=== PATIENT | male | born 1980 | race Native Hawaiian/Other Pacific Islander ===

== ENCOUNTER 2019-12-14 19:57 | Emergency (ER) | payer BC, SELFPAY ==
[2019-12-14 20:06] VITALS: BP 124/76; PULSE 90; RESP 16; TEMP 36.9; O2SAT 97; BMI 32.5
--- NOTE | 2019-12-14 20:30 | XR_ITS ---
WS: [id number] LEFT HAND: 3 VIEW(S) TECHNIQUE: PA, oblique and lateral. HISTORY: iNJURY COMPARISON: None available. No acute fracture or dislocation. No soft tissue or bone abnormality. XR/XR hand LT min 3V* [id number] IMPRESSION: Normal LEFT hand.
--- NOTE | 2019-12-14 21:17 | W.ED.UPPEXIN ---
HPI - Extremity Injury (Upper) General: Chief Complaint: Extremity Injury, Upper Stated Complaint: finger/hand lac Time Seen by Provider: 12/14/19 20:32 Source: patient Mode of arrival: ambulatory Limitations: no limitations History of Present Illness: HPI narrative: Patient is a 39-year-old male who presents to ED today with complaints of a laceration to his left middle finger that he sustained after cutting it on a combine. Patient states his tetanus is up-to-date. complaint: injury to: left and finger Onset (ago): hour(s) Other Extremity Injury: Left: fingers (middle) Other injuries: none Place: home Severity: mild Relieving factors: none Exacerbating factors: none Associated symptoms: Reports no associated symptoms Review of Systems Skin/Breast: Reports: other (laceration ) Neuro: Denies: numbness in extremities or sensory changes PFSH ED PFSH: Social History Smoking and tobacco status: never smoked Physical Exam Const: COMMON NORMALS: no acute distress, average body habitus, patient oriented x3, no limitations, healthy appearing, alert and well nourished Extremity: OTHER: 1.5 cm laceration to volar L middle finger overlying middle phalanx Neuro: COMMON NORMALS: patient oriented x3, moves all extremities, no focal motor deficits and no sensory deficits noted SENSORIUM/ORIENTATION: Yes alert OTHER: maintains full ROM of digit against resistance Skin: OTHER: see extremity assessment Procedures Laceration Laceration 1: Site: hand (L middle finger) Side (If applicable): left Size (cm): 1.5 Description: linear and flap Depth: simple, single layer Local Anesthetic: lidocaine 1% (digital block) Amount of anesthesia used (mL): 2.0 Pre-repair: wound explored and irrigated extensively Skin layer closed with: nylon Size (cm): 4-0 Number of sutures: 5 Course Vital Signs: Vital signs: Vital Signs Temperature 98.4 F 12/14/19 20:06 Pulse Rate 78 12/14/19 21:56 Respiratory Rate 17 12/14/19 21:56 Blood Pressure 133/84 12/14/19 21:56 Pulse Oximetry 98 12/14/19 21:56 MDM - Extremity Injury (Upper) Imaging Data^: L hand XR: My impression: no fxs, dislocations, or fbs noted; small soft tissue injury to volar middle phalanx of middle finger Discharge Plan Discharge Patient Disposition: Home, Self-Care Clinical Impression: Laceration of left middle finger Qualifiers: Encounter type: initial encounter Damage to nail status: without damage Foreign body presence: without foreign body Qualified Code(s): S61.213A - Laceration without foreign body of left middle finger without damage to nail, initial encounter Condition: Stable Prescriptions: No Action No Known Home Medications RF: 0 Discharge Orders: Discharge Order (Routine); Ordered 12/14/19 Ordered By: Kareen Toney Patient Instructions: Suture Care (ED), Laceration (ED), Finger Laceration (ED) Discharge Date/Time: 12/14/19 22:02 Coding Level of Care Code ED Child Nutrition Manager for Jennie Vasquez
[2019-12-14 21:56] VITALS: BP 133/84; PULSE 78; RESP 17; O2SAT 98
== END 2019-12-14 22:02 | disposition home or self-care (01) ==
PROVIDERS: Emergency Provider Physician Assistant
DX: S61.213A Laceration without foreign body of left middle finger without damage to nail, initial encounter (principal); W30.0XXA Contact with combine harvester, initial encounter
CPT/HCPCS: 12001; 12345; 73130; 99281; 99283

== ENCOUNTER 2019-12-15 23:13 | Emergency (ER) | payer BC, SELFPAY ==
[2019-12-15 23:15] VITALS: BP 156/104; PULSE 102; RESP 18; TEMP 36.9; O2SAT 98; BMI 32.8
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
[2019-12-15 23:48] VITALS: BP 156/104; PULSE 101; RESP 20; O2SAT 100
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
[2019-12-16] MEDS: iohexol 300 mg/mL 100 mL Btl IV (00:35)
[2019-12-16 01:19] VITALS: RESP 18; O2SAT 96
[2019-12-16] MEDS: morphine 4 mg/mL SDV 1 mL IVP (01:19)
[2019-12-16] MEDS: ondansetron 2 mg/ML SDV 2 mL 4 MG IVP (01:19)
[2019-12-16 01:35] VITALS: PULSE 105; RESP 18; O2SAT 95
[2019-12-16 01:36] VITALS: BP 146/85; PULSE 107; RESP 23; O2SAT 94
[2019-12-16] MEDS: HYDROcodone-acetaminophen 5-325 mg Tablet 2 TAB PO (02:18)
[2019-12-16 02:33] VITALS: BP 112/56; PULSE 101; RESP 20; O2SAT 98
== END 2019-12-16 02:17 | disposition home or self-care (01) ==
PROVIDERS: Emergency Provider Physician Assistant
DX: S22.42XA Multiple fractures of ribs, left side, initial encounter for closed fracture (principal); S32.028A Other fracture of second lumbar vertebra, initial encounter for closed fracture; S32.038A Other fracture of third lumbar vertebra, initial encounter for closed fracture; V69.9XXA Occupant (driver) (passenger) of heavy transport vehicle injured in unspecified traffic accident, initial encounter
CPT/HCPCS: 12345; 70450; 71260; 72125; 72128; 72131; 74177; 96374; 96375; 99283; J2270; J2405; Q9967

== ENCOUNTER 2020-01-04 08:46 | Outpatient (CLI) | payer BC, SELFPAY ==
--- NOTE | 2020-01-04 08:54 | MR_ITS ---
WS: [id number] MRI LUMBAR SPINE NONCONTRAST TECHNIQUE: Sagittal T1, T2 and STIR imaging. Axial T1 and T2 imaging. CLINICAL INFORMATION: CLOSED FX OF TRANSVERSE PROCESS OF LUMBAR VERTEBRA COMPARISON: CT December 16, 2019 FINDINGS: Stable nondisplaced fractures left transverse processes of L2 and L3. No acute compression fractures. No high-grade central canal stenosis. L1-L2: Normal. L2-L3: No significant disc bulging. Spinal canal and foramen are patent. L3-L4: No significant disc bulging. Mild facet arthropathy. Spinal canal and foramen are patent. L4-L5: Mild annular bulging. Slight effacement of ventral thecal sac. Mild facet arthropathy. Spinal canal and foramen are patent. L5-S1: Shallow left pericentral protrusion with slight contact of the traversing left greater than ri ght S1 nerve roots. Mild left and no significant right foraminal narrowing. Mild to moderate facet ar thropathy. Visualized pelvic bony structures: Normal. Paravertebral soft tissues: Normal. MR/MR lumbar spine wo con* [id number] IMPRESSION: 1. Mild lumbar curve. No acute compression. No high-grade central canal stenos is. 2. Shallow left pericentral protrusion L5-S1 impinges the traversing left S1 n erve root. Correlation left S1 nerve root symptoms. 3. Mild left L5-S1 foraminal narrowing. 4. Mild/moderate facet arthropathy L3-L5 worse at left L5-S1.
== END 2020-01-04 08:47 | disposition home or self-care (01) ==
LOC: RADWPI 08:48
PROVIDERS: Family Provider Nurse Practitioner Family; PCP Nurse Practitioner Family; Visit Provider Nurse Practitioner Family
DX: S32.009A Unspecified fracture of unspecified lumbar vertebra, initial encounter for closed fracture (principal); M47.817 Spondylosis without myelopathy or radiculopathy, lumbosacral region; M51.27 Other intervertebral disc displacement, lumbosacral region; X58.XXXA Exposure to other specified factors, initial encounter
CPT/HCPCS: 72148

== ENCOUNTER 2021-05-11 09:54 | Inpatient (IN) | payer BC, SELFPAY ==
[2021-05-11] VITALS (9 sets, daily range): BP systolic 112–138; BP diastolic 70–90; PULSE 78–98; RESP 16–22; TEMP 37–37.8; O2SAT 88–92
--- NOTE | 2021-05-11 10:59 | W.ED.COVID ---
HPI - COVID General: Chief Complaint: COVID symptoms Stated Complaint: COVID+ Time Seen by Provider: 05/11/21 10:49 Triage information: Has fever, cough or shortness of breath. History of Present Illness: HPI Narrative: 40-year-old male presents emergency room with complaint of shortness of breath. O2 sats on room air 88%. Patient first began having symptoms on May 06, 5 days ago, tested +2 days ago on May 09. He is progressively having increasing shortness of breath. Reports having been prescribed Zithromax prednisone and albuterol. Patient is not diabetic he has no known heart disease no history of any chronic respiratory illness. He has not previously been vaccinated nor did he receive monoclonal antibodies. MD complaint: known COVID positive Prior covid testing: yes, results known Prior testing date: 05/09/21 COVID 19 common symptoms: positive fever(s), chills, cough, non-productive cough, dyspnea, fatigue, body aches, loss of sense of smell and/or taste and nasal congestion; negative nausea, vomiting or diarrhea COVID 19 other sytmptoms: positive requiring oxygen; negative chest pain Onset (ago): day(s) (5) Severity: moderate Pertinent comorbid conditions: obesity Treatment prior to arrival: antibiotics, steroids and breathing treatments (Albuterol inhaler) COVID Results: No Data to Display Review of Systems Const: Reports: fever(s), chills, body aches and fatigue ENMT: Reports: nasal congestion Card: Denies: chest pain, edema, dyspnea on exertion or orthopnea Resp: Reports: dyspnea and non-productive cough GI: Denies: abdominal pain, nausea, vomiting, hematemesis, coffee ground emesis, diarrhea, constipation, bloating, hematochezia or melena : Denies: flank pain, dysuria, urinary frequency or urinary urgency Skin/Breast: Denies: rash or pruritus PFSH ED PFSH: Family History Other Dementia Social History Smoking and tobacco status: never smoked Alcohol intake: never Physical Exam Const: GENERAL APPEARANCE: cooperative, ill appearing and other (mild acute respiratory distress.) ORIENTATION/CONSCIOUSNESS: Yes awake, Yes oriented to person, Yes oriented to place and Yes oriented to time HENMT: COMMON NORMALS: normocephalic, atraumatic and hearing grossly normal bilaterally HEAD & SCALP: normocephalic and atraumatic Neck/C-Spine: COMMON NORMALS: no JVD Resp: EFFORT & INSPECTION: Yes tachypneic and Yes respiratory distress AUSCULTATION: crackles and wheezes Cardio: COMMON NORMALS: no JVD, regular rate, regular rhythm and No murmurs present (Cardio) RATE: regular rate RHYTHM: regular rhythm GI: COMMON NORMALS: Soft to palpation and No hepatosplenomegaly present AUSCULTATION: Yes normoactive bowel sounds PALPATION: Yes Soft to palpation, No Tenderness to palpation present (GI), No Guarding due to palpation present (GI) and Yes No hepatosplenomegaly present Extremity: COMMON NORMALS: normal to inspection, capillary refill normal, no clubbing, cyanosis or edema, no calf tenderness and no pedal edema Neuro: SENSORIUM/ORIENTATION: Yes oriented to person, Yes oriented to place and Yes oriented to time Skin: COMMON NORMALS: no rashes or lesions noted GENERAL SKIN EXAM: no rashes or lesions noted Course Vital Signs: Vital signs: Vital Signs Temperature 98.4 F 05/18/21 04:00 Pulse Rate 77 05/18/21 04:00 Respiratory Rate 19 H 05/18/21 04:00 Blood Pressure 124/70 05/18/21 04:00 Pulse Oximetry 95 05/18/21 04:00 MDM - COVID MDM Narrative: Medical decision making narrative: Patient has significant risk factors and is rapidly deteriorating in the reported timeframe that he is begun to be symptomatic. Respiratory distress relieved by supplemental oxygen initially. recommend hospitalization with IV steroids remdesivir. Discussed with hospitalist orders have been written. Lab Data: Labs: Lab Results 05/11/21 05/11/21 05/11/21 10:56 10:56 10:56 WBC 8.2 10^3/uL 10^3/ uL (4.0-10.0) RBC 5.03 10^6/uL 10^6 /uL (4.1-5.3) Hgb 14.0 g/dL g/dL (11.7-16.6) Hct 43.2 % % (42.0-52.0) MCV 85.9 fl fl (80-94) MCH 27.8 pg L pg (28.0-34.0) MCHC 32.4 g/dL g/dL (30.0-36.0) RDW 13.8 % % (12.1-15.1) Plt Count 204 10^3/cmm 10^3 /cmm (130-400) MPV 10.0 fL fL (7.4-10.4) Neut % (Auto) 90.6 % % Lymph % (Auto) 5.7 % % [place] % (Auto) 3.0 % % Eos % (Auto) 0.0 % % Baso % (Auto) 0.1 % % Neut # (Auto) 7.46 10^3/uL 10^3 /uL (1.8-7.7) Lymph # (Auto) 0.5 10^3/uL L 10^ 3/uL (0.8-4.8) [place] # (Auto) 0.3 10^3/uL 10^3/ uL (0.2-0.9) Eos # (Auto) 0.0 10^3/uL 10^3/ uL (0.0-0.8) Baso # (Auto) 0.0 10^3/uL 10^3/ uL (0.0-0.1) Nucleated RBC % (a uto) 0 % % Nucleated RBCs # 0.0 /100WBC /100W BC D-Dimer 0.87 ug/mIFEU H u g/mIFEU (0-0.59) Specimen Type Sample Site ABG pH ABG pCO2 ABG pO2 ABG HCO3 ABG Base Excess Roderick Test Hematocrit O2 Delivery Device O2 Liters/Min FiO2 Aircraft Communicator ID Sodium 136 mmol/L mmol/L (136-145) Potassium 3.9 mmol/L mmol/L (3.5-5.1) Chloride 98 mmol/L mmol/L (98-107) Carbon Dioxide 22 mmol/L mmol/L (22-29) Anion Gap 19.9 H (5-19) BUN 16 mg/dL mg/dL (6-20) Creatinine 0.8 mg/dL mg/dL (0.7-1.2) GFR Calculation 108.2 mL/min mL/m in (90-130) Glucose 107 mg/dL mg/dL (65-115) Calculated Osmolal ity 284 mOsm/kg L mOs m/kg (285-295) Lactic Acid Calcium 8.1 mg/dL L mg/dL (8.5-10.5) Total Bilirubin 0.4 mg/dL mg/dL (0.15-1.2) AST 45 U/L H U/L (0-40) ALT 36 U/L U/L (0-41) Alkaline Phosphata se 70 IU/L IU/L (40-130) C-Reactive Protein 91.0 mg/L H mg/L (0.0-4.9) Total Protein 7.6 g/dL g/dL (6.6-8.7) Albumin 3.8 g/dL g/dL (3.5-5.2) Globulin 3.8 g/dL g/dL (1.3-4.6) Procalcitonin 05/11/21 05/11/21 05/11/21 10:56 10:56 11:22 WBC RBC Hgb Hct MCV MCH MCHC RDW Plt Count MPV Neut % (Auto) Lymph % (Auto) [place] % (Auto) Eos % (Auto) Baso % (Auto) Neut # (Auto) Lymph # (Auto) [place] # (Auto) Eos # (Auto) Baso # (Auto) Nucleated RBC % (a uto) Nucleated RBCs # D-Dimer Specimen Type Arterial Sample Site Radial, right ABG pH 7.45 (7.35-7.45) ABG pCO2 38.5 mmHg mmHg (35-45) ABG pO2 70.5 mmHg L mmHg (80.0-100.0) ABG HCO3 26.9 mmol/L H mmo l/L (22-26) ABG Base Excess 2.9 mmol/L H mmol /L (-2.0-2.0) Roderick Test Pos Hematocrit 42.7 % % (42-52) O2 Delivery Device Nc O2 Liters/Min 4.0 % % FiO2 36.0 % % Aircraft Communicator ID [place] Sodium Potassium Chloride Carbon Dioxide Anion Gap BUN Creatinine GFR Calculation Glucose Calculated Osmolal ity Lactic Acid 1.3 mmol/L mmol/L (0.5-2.2) Calcium Total Bilirubin AST ALT Alkaline Phosphata se C-Reactive Protein Total Protein Albumin Globulin Procalcitonin 0.19 ng/mL ng/mL (0-0.5) COVID Results: No Data to Display Discharge Plan Discharge Patient Disposition: Admitted As Inpatient Admit Provider: Baron Gould Clinical Impression: Pneumonia due to COVID-19 virus, Acute respiratory failure with hypoxia Condition: Stable Coding Level of Care Code ED Clinic Specialist for Chg Fwd Exam Comprehensive
[2021-05-11] MEDS: dexamethasone 10 mg/mL INJ 6 MG IVP (11:04)
--- NOTE | 2021-05-11 11:11 | XR_ITS ---
WS: [id number] Exam: XR chest 1V portable [id number] Date/Time of Exam: 05/11/2021 11:15 AM Reason For Exam: dyspnea/cough Comparison 09/21/2009. There are patchy groundglass infiltrates noted throughout both lungs. The lungs are fully inflated. N ormal cardiomediastinal structures and bony elements. XR/XR chest 1V portable [id number] IMPRESSION: 1. Patchy groundglass infiltrates throughout both lungs consistent with pneumon ia. Covid pneumonia could have this appearance.
[2021-05-11 11:12] LABS: Basophils % 0.1 %; Hematocrit 43.2 % (42.0-52.0); Lymphocytes # 0.5 10^3/uL (0.8-4.8); Lymphocytes % 5.7 %; Mean Corpuscular HGB Conc 32.4 g/dL (30.0-36.0); Mean Corpuscular Hemoglobin 27.8 pg (28.0-34.0); Mean Corpuscular Volume 85.9 fl (80-94); Monocytes # 0.3 10^3/uL (0.2-0.9); Neutrophils # 7.46 10^3/uL (1.8-7.7); Neutrophils % 90.6 %; Nucleated Red Blood Cells % 0 %; Platelet Count 204 10^3/cmm (130-400); Red Blood Count 5.03 10^6/uL (4.1-5.3); Red Cell Distribution Width 13.8 % (12.1-15.1); White Blood Count 8.2 10^3/uL (4.0-10.0)
--- NOTE | 2021-05-11 11:12 | PC.NURSE ---
Pt placed on division chair upon entering the room.
[2021-05-11 11:27] LABS: D Dimer 0.87 ug/mIFEU (0-0.59)
[2021-05-11 11:28] LABS: Lactic Sepsis W/Reflex 1.3 mmol/L (0.5-2.2)
--- NOTE | 2021-05-11 11:34 | PC.PHAR ---
pt states he takes care of his own medications-pt verified meds states he thinks thats all the otc meds his was giving him
[2021-05-11 11:37] LABS: ABG PCO2 38.5 mmHg (35-45); ABG PH Result 7.45 (7.35-7.45); Arterial Blood Gas Hematocrit 42.7 % (42-52); Base Excess ABG 2.9 mmol/L (-2.0-2.0); Blood Gas Allen Test Pos; Blood Gas Operator Identificat MONRO; Blood Gas Sample Site Radial, right; Blood Gas Sample Type Arterial; HCO3 ABG 26.9 mmol/L (22-26); Oxygen Device NC; PO2 ABG 70.5 mmHg (80.0-100.0)
[2021-05-11 11:47] LABS: Alanine Aminotransferase 36 U/L (0-41); Albumin Level 3.8 g/dL (3.5-5.2); Alkaline Phosphatase 70 IU/L (40-130); Aspartate Amino Transferase 45 U/L (0-40); Blood Urea Nitrogen 16 mg/dL (6-20); Calcium 8.1 mg/dL (8.5-10.5); Carbon Dioxide 22 mmol/L (22-29); Chloride 98 mmol/L (98-107); Creatinine Clr Calc Pharmacy 156.3476; Globulin 3.8 g/dL (1.3-4.6); Glomerular Filtration Rate 108.2 mL/min (90-130); Glucose 107 mg/dL (65-115); Osmolality Calculated 284 mOsm/kg (285-295); Sodium 136 mmol/L (136-145); Total Bilirubin 0.4 mg/dL (0.15-1.2); Total Protein 7.6 g/dL (6.6-8.7)
[2021-05-11 11:49] LABS: Anion Gap 19.9 (5-19); Potassium 3.9 mmol/L (3.5-5.1)
[2021-05-11] MEDS: remdesivir 200 MG in sodium chloride 0.9% (100 ml) 60 ML 100 MG IV (12:00)
--- NOTE | 2021-05-11 12:16 | PM.HP ---
Providers/Chief Complaint Primary Care Provider: CHANTAL Zuniga Chief Complaint: COVID+ History of Present Illness Marcos Hurtado is a 40 year old male presenting to the emergency department with increasing shortness of breath. He has had symptoms of cough, shortness of breath, intermittent fever since May 06. He tested positive for Covid on the . He felt a little bit better yesterday but worse today. Upon arrival to the emergency department his oxygen saturation was 88% respiratory rate 20 and from my understanding he had some mild respiratory distress prior to oxygen being administered. He denies any nausea, vomiting or diarrhea. He has been eating less but still drinking plenty of fluids. Review of Systems General: Reports: 10 or more systems reviewed and unremarkable except in HPI and below Const: Reports: fever(s), body aches, fatigue and malaise Eyes: Denies: change in vision ENMT: Denies: throat pain Card: Denies: chest pain Resp: Reports: dyspnea and productive cough GI: Denies: abdominal pain, nausea, vomiting, hematochezia or melena : Denies: flank pain Musc: Denies: neck pain Skin/Breast: Denies: rash Neuro: Denies: headache(s) Psych: Denies: anxiety or depression Endo: Denies: polyuria Pierce/Lymph: Denies: easy bruising All/Imm: Denies: urticaria Medications/Allergies Home Medications Medication Instructions Recorded Confirmed Last Taken Type Fish Oil 1 cap PO DAILY 05/11/21 05/11/21 Unknown History Vitamin C 1 tab PO DAILY 05/11/21 05/11/21 Unknown History Vitamin D3 1 cap PO DAILY 05/11/21 05/11/21 Unknown History acetaminophen [Tylenol Ex Str 1,000 mg PO Q4H PRN 05/11/21 05/11/21 Unknown History Rapid Release] albuterol sulfate 2 puff INHALATION Q4H PRN 05/11/21 05/11/21 Unknown History azithromycin See Rx Instructions .ROUTE .COMPLEX 05/11/21 05/11/21 05/11/21 07:30 History prednisone 40 mg PO DAILY 05/11/21 05/11/21 05/11/21 07:30 History zinc 1 cap PO DAILY 05/11/21 05/11/21 Unknown History Allergies Allergy/AdvReac Type Severity Reaction Status Date / Time No Known Allergies Allergy Verified 05/11/21 11:34 PFSH Acute PFSH: Family History (Updated 05/11/21 @ 12:19 by Baron Gould MD) Other Dementia Social History (Updated 05/11/21 @ 12:19 by Baron Gould MD) Smoking and tobacco status: never smoked Alcohol intake: never Supplemental PFSH Information: Denies any significant past medical history, or surgical history Vitals/I&O/Wt Last Vital Signs Temp 100.1 F H 05/11/21 10:34 Pulse 91 05/11/21 12:07 Resp 18 05/11/21 12:07 BP 116/82 05/11/21 12:07 Pulse Ox 90 05/11/21 12:07 Weight last 48 hrs Weight 104.326 kg Physical Exam Narrative: EXAM NARRATIVE: General exam is a white male, on no distress currently with 4 L of oxygen although he was hypoxic and having some distress on arrival. PO2 only 70 on 4 L. HEENT: Pupils equally round. Oropharynx clear. Neck is supple no lymphadenopathy or thyromegaly Cardiovascular regular rhythm without murmur Lungs scattered dry crackles bilaterally Abdomen is soft with positive bowel sounds. No obvious organomegaly exam is deferred Extremities no cyanosis clubbing or edema, cap refill brisk Skin no rash Neuro no focal deficits. Data : 05/11/21 10:56 05/11/21 10:56 Other data: Dimer 0.87 ABG demonstrates a pH of 7.45, PCO2 38, PO2 of 70 on 4 L Lactic acid 1.3, calcium 8.1 LFTs normal with exception of AST of 45 CRP 91 Chest x-ray patchy pneumonia consistent with Covid A&P Assessment and plan (1) Pneumonia due to COVID-19 virus: Pulmonary toilet with DuoNeb Oxygen as needed Remdesivir Dexamethasone 6 mg IV every 24 hours Rocephin empirically Incentive spirometry Prone as much as possible Repeat CRP tomorrow. If clinically worsening, elevated inflammatory level, consider Actemra or baricitinib Repeat dimer. If increasing rapidly consider CTA Sputum culture Status: Acute (2) Acute and chronic respiratory failure with hypoxia: See above Status: Acute Additional A&P Information Full code Lovenox for DVT prophylaxis Attestations Medical Necessity Statement*: Will need greater than 2 midnight stay secondary to COVID-19 pneumonia with hypoxia Time Spent in Patient Care: Greater than 35 minutes Coding Level of Care Code Acute Ice Rink Attendant for g Fwd Diagnoses Pneumonia due to COVID-19 virus U07.1; J12.82 Acute and chronic respiratory failure with hypoxia J96.21
[2021-05-11 12:58] LABS: Procalcitonin 0.19 ng/mL (0-0.5)
--- NOTE | 2021-05-11 14:45 | PC.NURSE ---
Consent given by Aparna to access patient information. Update given to Aparna. Extensive education performed with regarding plan of care including prone positioning. denies further questions at this time.
[2021-05-11] MEDS: ipratropium-albuterol 3 mL Neb INHALATION ×2 (16:05→21:37)
[2021-05-11] MEDS: enoxaparin 40 mg/0.4 mL Syringe SUBCUT (17:57)
[2021-05-11] MEDS: cefTRIAXone 1,000 MG in sodium chloride 0.9% (plus) 50 ML 100 MG IV (21:01)
[2021-05-12] VITALS (14 sets, daily range): BP systolic 105–118; BP diastolic 67–74; PULSE 18–93; RESP 16–30; TEMP 36.3–36.9; O2SAT 90–94
[2021-05-12] MEDS: ipratropium-albuterol 3 mL Neb INHALATION ×4 (02:14→21:07)
[2021-05-12] MEDS: remdesivir 100 MG in sodium chloride 0.9% (100 ml) 80 ML IV (05:24)
[2021-05-12 06:40] LABS: Hematocrit 42.3 % (42.0-52.0); Hemoglobin 13.5 g/dL (11.7-16.6); Lymphocytes # 0.9 10^3/uL (0.8-4.8); Lymphocytes % 11.9 %; Mean Corpuscular HGB Conc 31.9 g/dL (30.0-36.0); Mean Corpuscular Hemoglobin 27.8 pg (28.0-34.0); Mean Platelet Volume 9.8 fL (7.4-10.4); Monocytes # 0.3 10^3/uL (0.2-0.9); Monocytes % 4.3 %; Neutrophils # 6.43 10^3/uL (1.8-7.7); Neutrophils % 83.3 %; Nucleated Red Blood Cells % 0 %; Platelet Count 194 10^3/cmm (130-400); Red Blood Count 4.86 10^6/uL (4.1-5.3); Red Cell Distribution Width 13.7 % (12.1-15.1); White Blood Count 7.7 10^3/uL (4.0-10.0)
[2021-05-12 06:57] LABS: Alanine Aminotransferase 29 U/L (0-41); Albumin Level 3.4 g/dL (3.5-5.2); Alkaline Phosphatase 61 IU/L (40-130); Anion Gap 18.3 (5-19); Aspartate Amino Transferase 32 U/L (0-40); Blood Urea Nitrogen 15 mg/dL (6-20); C Reactive Protein 101.9 mg/L (0.0-4.9); Calcium 7.9 mg/dL (8.5-10.5); Carbon Dioxide 23 mmol/L (22-29); Chloride 102 mmol/L (98-107); Globulin 3.7 g/dL (1.3-4.6); Glomerular Filtration Rate 186.1 mL/min (90-130); Glucose 119 mg/dL (65-115); Osmolality Calculated 290 mOsm/kg (285-295); Potassium 4.3 mmol/L (3.5-5.1); Sodium 139 mmol/L (136-145); Total Bilirubin 0.3 mg/dL (0.15-1.2); Total Protein 7.1 g/dL (6.6-8.7)
[2021-05-12 07:41] LABS: Slide Review Slide Review Perform
[2021-05-12] MEDS: dexamethasone 10 mg/mL INJ 6 MG IVP (08:15)
[2021-05-12] MEDS: tocilizumab 800 MG in sodium chloride 0.9% (100 ml) 100 ML 100 MG IV (12:34)
--- NOTE | 2021-05-12 15:48 | P.PN_ITS ---
Subjective Subjective: Interval history: Oxygen requirement has increased to 6 L, patient is not endorsing chest pain however endorsing shortness of breath on activity at rest he was comfortable No active diarrhea will give Actemra today CRP greater than 100 Patient is not vaccinated, today will be his 12th day of symptom Vitals/I&O/Wt Last Vital Signs Temp 98.4 F 05/12/21 11:33 Pulse 87 05/12/21 14:46 Resp 28 H 05/12/21 14:46 BP 113/73 05/12/21 11:33 Pulse Ox 91 05/12/21 14:46 05/12/21 05/12/21 05/12/21 06:59 14:59 22:59 Intake Total 300 / 610 620 / 620 Balance 300 / 610 620 / 620 Weight last 48 hrs Weight 104.326 kg Physical Exam Narrative: EXAM NARRATIVE: Patient sitting in his sofa Saturating well on 6 L nasal cannula No active chest pain Bilateral breath sounds no adventitious rhonchi crackles however mild crepitation noted at the lung base Abdomen soft distended with obesity EOMI, PERRLA nonfocal neuro exam S1, S2 Data : 05/12/21 06:23 05/12/21 06:23 Micro: Microbiology 05/12/21 06:30 Gram Stain - Final Sputum - Expectorated Sputum A&P Assessment and plan (1) Pneumonia due to COVID-19 virus: Status: Acute (2) Acute respiratory failure with hypoxia: Status: Acute Additional A&P Information COVID-19 related acute hypoxic respiratory failure Doing well on 6 L nasal cannula Complaining of dry cough We will give a dose of Actemra 05/12 Continue IV remdesivir and steroids Encourage proning and flutter valve CRP greater than 100, he is not vaccinated Day 12 of his symptoms Full code IV ceftriaxone, procalcitonin unremarkable, monitor inflammatory markers every 48 hours Encourage patient to monitor his O2 saturation while ambulating in the room with pulse ox Regular diet Attestations Medical Necessity Statement*: Anticipating discharge within next 3 to 4 days if okay saturation stays above 90% on FiO2 less than 5 L Time Spent in Patient Care: 16 - 35 minutes Coding Level of Care Code Acute Informatics Application Analyst for Jennie Vasquez Diagnoses Pneumonia due to COVID-19 virus U07.1; J12.82 Acute respiratory failure with hypoxia J96.01
[2021-05-12] MEDS: enoxaparin 40 mg/0.4 mL Syringe SUBCUT (17:22)
[2021-05-13] VITALS (14 sets, daily range): BP systolic 109–130; BP diastolic 68–83; PULSE 69–91; RESP 16–26; TEMP 36.6–37.2; O2SAT 85–94
[2021-05-13] MEDS: ipratropium-albuterol 3 mL Neb INHALATION ×4 (02:41→20:34)
[2021-05-13] MEDS: remdesivir 100 MG in sodium chloride 0.9% (100 ml) 80 ML IV (05:41)
[2021-05-13 05:45] LABS: Procalcitonin 0.08 ng/mL (0-0.5)
[2021-05-13 05:58] LABS: Alanine Aminotransferase 27 U/L (0-41); Albumin Level 3.4 g/dL (3.5-5.2); Alkaline Phosphatase 62 IU/L (40-130); Anion Gap 18.1 (5-19); Aspartate Amino Transferase 30 U/L (0-40); Blood Urea Nitrogen 15 mg/dL (6-20); C Reactive Protein 55.6 mg/L (0.0-4.9); Calcium 8.3 mg/dL (8.5-10.5); Carbon Dioxide 24 mmol/L (22-29); Chloride 103 mmol/L (98-107); Globulin 3.6 g/dL (1.3-4.6); Glomerular Filtration Rate 150.8 mL/min (90-130); Glucose 116 mg/dL (65-115); Osmolality Calculated 294 mOsm/kg (285-295); Potassium 4.1 mmol/L (3.5-5.1); Sodium 141 mmol/L (136-145); Total Bilirubin 0.4 mg/dL (0.15-1.2)
[2021-05-13] MEDS: dexamethasone 10 mg/mL INJ 6 MG IVP (08:32)
--- NOTE | 2021-05-13 14:32 | P.PN_ITS ---
Subjective Subjective: Interval history: Seen and examined this morning, he has been sleeping in prone position, currently doing well on 5 L nasal cannula, does get extremely short of breath on ambulation No diarrhea, eating 60 to 70% of his meals Vitals/I&O/Wt Last Vital Signs Temp 98.2 F 05/13/21 11:30 Pulse 83 05/13/21 11:30 Resp 16 05/13/21 11:30 BP 129/79 05/13/21 11:30 Pulse Ox 90 05/13/21 11:30 05/12/21 05/13/21 05/13/21 22:59 06:59 14:59 Intake Total 580 / 1200 100 / 1300 240 / 240 Balance 580 / 1200 100 / 1300 240 / 240 Physical Exam Narrative: EXAM NARRATIVE: Patient was sitting comfortably in his bed No rhonchi or crackles Saturating well on 5 nasal cannula S1, S2 EOMI, PERRLA Suntanned skin rash Clinically looks euvolemic Abdomen soft Lower extremity no edema Data : 05/12/21 06:23 05/13/21 04:09 Micro: Microbiology 05/12/21 06:30 Gram Stain - Final Sputum - Expectorated Sputum Sputum Culture - Preliminary A&P Assessment and plan (1) Acute respiratory failure with hypoxia: Status: Acute (2) Pneumonia due to COVID-19 virus: Status: Acute Additional A&P Information Persistent hypoxia related to COVID-19 Fatigue and lethargy Patient is short of breath on ambulation If he is saturating well on 5 L nasal cannula by Friday, he can be discharged ho hi, afebrile, no leukocytosis or diarrhea Clinically showing plateau phase Regular diet DVT prophylaxis on board Full code Status post Actemra on 05/12 If clinically improved she does not have to finish remdesivir IV regimen, continue IV steroids for now Needs to work with PT on daily basis to regain his strength and endurance Attestations Medical Necessity Statement*: Continue medical management Time Spent in Patient Care: less than 15 minutes Coding Level of Care Code Acute Production Associate for Jennie Vasquez Diagnoses Acute respiratory failure with hypoxia J96.01 Pneumonia due to COVID-19 virus U07.1; J12.82
[2021-05-13] MEDS: enoxaparin 40 mg/0.4 mL Syringe SUBCUT (17:17)
[2021-05-14] VITALS (14 sets, daily range): BP systolic 99–133; BP diastolic 64–84; PULSE 62–84; RESP 16–25; TEMP 36.5–37.4; O2SAT 81–94
[2021-05-14] MEDS: ipratropium-albuterol 3 mL Neb INHALATION ×4 (03:32→20:06)
[2021-05-14 03:54] LABS: Basophils % 0.1 %; Hematocrit 46.5 % (42.0-52.0); Hemoglobin 14.5 g/dL (11.7-16.6); Lymphocytes # 1.2 10^3/uL (0.8-4.8); Lymphocytes % 12.7 %; Mean Corpuscular HGB Conc 31.2 g/dL (30.0-36.0); Mean Corpuscular Hemoglobin 27.6 pg (28.0-34.0); Mean Corpuscular Volume 88.6 fl (80-94); Mean Platelet Volume 10.2 fL (7.4-10.4); Monocytes # 0.4 10^3/uL (0.2-0.9); Monocytes % 4.4 %; Neutrophils # 7.38 10^3/uL (1.8-7.7); Neutrophils % 81.9 %; Nucleated Red Blood Cells % 0 %; Platelet Count 304 10^3/cmm (130-400); Red Blood Count 5.25 10^6/uL (4.1-5.3); Red Cell Distribution Width 13.7 % (12.1-15.1)
[2021-05-14 04:26] LABS: Procalcitonin 0.03 ng/mL (0-0.5)
[2021-05-14 04:34] LABS: Slide Review Slide Review Perform
[2021-05-14 04:41] LABS: Alanine Aminotransferase 35 U/L (0-41); Albumin Level 3.2 g/dL (3.5-5.2); Alkaline Phosphatase 68 IU/L (40-130); Blood Urea Nitrogen 16 mg/dL (6-20); Calcium 8.3 mg/dL (8.5-10.5); Carbon Dioxide 22 mmol/L (22-29); Chloride 103 mmol/L (98-107); Globulin 3.7 g/dL (1.3-4.6); Glomerular Filtration Rate 150.8 mL/min (90-130); Glucose 111 mg/dL (65-115); Osmolality Calculated 290 mOsm/kg (285-295); Sodium 139 mmol/L (136-145); Total Bilirubin 0.4 mg/dL (0.15-1.2); Total Protein 6.9 g/dL (6.6-8.7)
[2021-05-14 04:42] LABS: Anion Gap 18.8 (5-19); Aspartate Amino Transferase 32 U/L (0-40); Potassium 4.8 mmol/L (3.5-5.1)
[2021-05-14] MEDS: remdesivir 100 MG in sodium chloride 0.9% (100 ml) 80 ML IV (05:32)
[2021-05-14] MEDS: dexamethasone 10 mg/mL INJ 6 MG IVP (08:11)
--- NOTE | 2021-05-14 10:30 | PC.NURSE ---
Spoke to patient's and gave her an update.
[2021-05-14 12:49] LABS: ABG PCO2 34.2 mmHg (35-45); ABG PH Result 7.48 (7.35-7.45); Arterial Blood Gas Hematocrit 45.5 % (42-52); Base Excess ABG 2.1 mmol/L (-2.0-2.0); Blood Gas Allen Test Pos; Blood Gas Operator Identificat MONRO; Blood Gas Sample Site Radial, left; Blood Gas Sample Type Arterial; HCO3 ABG 25.2 mmol/L (22-26); Oxygen Device NC
[2021-05-14 13:04] LABS: D Dimer 0.85 ug/mIFEU (0-0.59)
--- NOTE | 2021-05-14 13:42 | CT_ITS ---
WS: [id number] CTA THORACIC AORTA WITH AND WITHOUT CONTRAST. HISTORY: Short of breath. TECHNIQUE: CT imaging of the thorax is performed with and without contrast. After noncontrast imaging is performed, CT angiogram is performed during injection of Omnipaque 350; 95 mL IV.. Sagittal and c oronal reconstructions, sagittal and coronal MIP imaging is submitted. All CT scans at [facility] use at least one of these dose optimization techniques: automated exposure control; mA and/or kV adjustment per patient size (includes targeted exams where dose is matched to clinical indication); or iterative reconstruction. DLP: 2030.36 mGy.cm COMPARISON: 12/16/2019 This study is targeted to evaluate the thoracic aorta. Thoracic aorta is normal size. No dissection o r aneurysm is identified. Pulmonary artery is also visualized and there is no central or proximal pul monary emboli. There are numerous small mediastinal and hilar lymph nodes with the largest lymph node s at the RIGHT hilum measuring up to 13 mm. There is extensive groundglass attenuation and increasing consolidation throughout all lobes. No pneu mopericardium or pneumomediastinum. No pneumothorax. No effusion. Heart size is slightly enlarged. No RIGHT heart strain.0 No osteoblastic or osteolytic bone disease. CT/CT angio chest [id number] IMPRESSION: 1. Normal thoracic aorta. No dissection or aneurysm. 2. This examination is targeted to the thoracic aorta. No central pulmonary em bolism. 3. Extensive bilateral pulmonary opacifications consistent with Covid 19.
--- NOTE | 2021-05-14 13:42 | P.PN_ITS ---
Subjective Subjective: Interval history: Patient seen this morning. He feels well enough to go home today. He is on 4 L nasal cannula. Patient does believe he has improved. He is continuing to use a flutter valve and incentive spirometer. We will be doing the home oxygen evaluation today. Vitals/I&O/Wt Last Vital Signs Temp 98 F 05/14/21 11:38 Pulse 80 05/14/21 13:25 Resp 16 05/14/21 13:25 BP 104/66 05/14/21 11:38 Pulse Ox 94 05/14/21 13:25 05/13/21 05/14/21 05/14/21 22:59 06:59 14:59 Intake Total 720 / 960 100 / 1060 120 / 120 Balance 720 / 960 100 / 1060 120 / 120 Physical Exam Narrative: EXAM NARRATIVE: General: Alert oriented x3, seen this morning, resting comfortably on recliner on 4 L nasal cannula. HEENT: Normocephalic, atraumatic, EOMI, Cardio: Regular rate rhythm, normal S1-S2, Respiratory: Mainly clear to auscultation bilaterally, no wheezes no rhonchi, does have coarse breath sounds at bases bilaterally. No conversational dyspnea noted. Saturating 94% on 4 L nasal cannula. GI: Abdomen soft, nontender, bowel sounds + Behavior: Appropriate and cooperative Extremities: no edema, no cyanosis Data : 05/14/21 02:43 05/14/21 02:43 Micro: Microbiology 05/12/21 06:30 Gram Stain - Final Sputum - Expectorated Sputum Sputum Culture - Final A&P Assessment and plan (1) Acute respiratory failure with hypoxia: Status: Acute (2) Acute and chronic respiratory failure with hypoxia: Status: Acute (3) Pneumonia due to COVID-19 virus: Status: Acute (4) Multiple fractures of ribs of left side: Status: Acute Qualifiers: Encounter type: initial encounter Fracture type: closed Qualified Code(s): S22.42XA - Multiple fractures of ribs, left side, initial encounter for closed fracture Additional A&P Information Persistent hypoxia related to COVID-19 Patient does get short of breath on ambulation Home oxygen evaluation was done this morning. Upon ambulation patient desaturated to 81% on 10 L nasal cannula. He is clearly not ready to go home today. Baricitinib started PaO2 50s this morning. Another gas ordered. D-dimer elevated, CTA chest has been ordered to rule out PE Status post Actemra on 05/12 Continue remdesivir IV regimen, continue IV steroids. Continue physical therapy Further management pending CTA. Continue DVT prophylaxis Lovenox 40 daily dose for now. Full code Attestations Medical Necessity Statement*: Greater than 48-hour stay, requiring high amounts of oxygen on ambulation. Coding Level of Care Code Acute [place] Attendant for kandy Vasquez Diagnoses Acute respiratory failure with hypoxia J96.01 Acute and chronic respiratory failure with hypoxia J96.21 Pneumonia due to COVID-19 virus U07.1; J12.82 Multiple fractures of ribs of left side S22.42XA Encounter type: initial encounter Fracture type: closed
[2021-05-14] MEDS: iohexol 350 mg/mL 100 mL Btl IV (14:10)
[2021-05-14] MEDS: enoxaparin 40 mg/0.4 mL Syringe SUBCUT (17:34)
[2021-05-14] MEDS: ascorbic acid 500 mg Tablet 1000 MG PO (17:34)
--- NOTE | 2021-05-14 18:44 | PC.NURSE ---
Report to [facility] at this time.
--- NOTE | 2021-05-14 20:51 | PC.NURSE ---
reported high reps 22 to nurse
[2021-05-15] VITALS (15 sets, daily range): BP systolic 101–113; BP diastolic 67–75; PULSE 59–92; RESP 16–30; TEMP 36.6–37.2; O2SAT 84–97
--- NOTE | 2021-05-15 00:23 | PC.NURSE ---
i reported high reps 20 to nurse
[2021-05-15] MEDS: ipratropium-albuterol 3 mL Neb INHALATION ×4 (03:08→21:03)
--- NOTE | 2021-05-15 05:20 | PC.NURSE ---
i reported high reps 20 to nurse
[2021-05-15] MEDS: remdesivir 100 MG in sodium chloride 0.9% (100 ml) 80 ML IV (05:35)
[2021-05-15 06:12] LABS: Basophils % 0.1 %; Hematocrit 45.1 % (42.0-52.0); Hemoglobin 14.5 g/dL (11.7-16.6); Lymphocytes # 1.5 10^3/uL (0.8-4.8); Mean Corpuscular HGB Conc 32.2 g/dL (30.0-36.0); Mean Corpuscular Hemoglobin 27.6 pg (28.0-34.0); Mean Corpuscular Volume 85.9 fl (80-94); Mean Platelet Volume 10.3 fL (7.4-10.4); Monocytes # 0.5 10^3/uL (0.2-0.9); Monocytes % 6.3 %; Neutrophils % 75.3 %; Nucleated Red Blood Cells % 0 %; Platelet Count 346 10^3/cmm (130-400); Red Blood Count 5.25 10^6/uL (4.1-5.3); Red Cell Distribution Width 13.4 % (12.1-15.1); White Blood Count 8.5 10^3/uL (4.0-10.0)
[2021-05-15 06:57] LABS: Procalcitonin 0.02 ng/mL (0-0.5)
[2021-05-15 07:09] LABS: Blood Urea Nitrogen 22 mg/dL (6-20); Calcium 8.2 mg/dL (8.5-10.5); Carbon Dioxide 24 mmol/L (22-29); Chloride 104 mmol/L (98-107); Glomerular Filtration Rate 150.8 mL/min (90-130); Glucose 90 mg/dL (65-115); Osmolality Calculated 293 mOsm/kg (285-295); Sodium 140 mmol/L (136-145)
[2021-05-15 07:15] LABS: Anion Gap 16.8 (5-19); Potassium 4.8 mmol/L (3.5-5.1)
[2021-05-15] MEDS: zinc gluconate 50 mg Tablet PO (08:11)
[2021-05-15] MEDS: dexamethasone 10 mg/mL INJ 6 MG IVP (08:11)
[2021-05-15] MEDS: cholecalciferol (vitamin D3) 1,000 unit Tablet 1000 UNIT PO (08:11)
[2021-05-15] MEDS: ascorbic acid 500 mg Tablet 1000 MG PO ×2 (08:12→16:55)
--- NOTE | 2021-05-15 08:42 | PM.CONSULT ---
Providers/Reason For Consult Consulting Physician/Specialty*: Alexis Jaquez MD/ Pulmonary Critical Care Reason for Consult*: Hypoxic respiratory failure secondary to diagnosis of COVID-19 Requesting Physician: Bonnie Smith MD Attending Physician: Bonnie Smith MD Primary Care Provider: CHANTAL Zuniga History of Present Illness History of Present Illness Marcos Hurtado is a 40 year old male with history of HO on CPAP presented to the ER with increasing dyspnea cough intermittent fever 05/06/2021 and was tested positive for Covid on 05/09/2021. Reportedly was not never vaccinated for Covid. Upon arrival to the ER his saturation was 88% and some mild respiratory distress. During the course of his stay his oxygen requirement has increased to 6 L. He received Actemra on 05/12/2021 and was given 5-day course of remdesivir and dexamethasone. Yesterday initially patient was on 4 L nasal cannula but had an event where he desaturated to 91% on exertion and has to increase his oxygen from high flow nasal cannula 35 L 50%. Pulmonary consult requested for worsening hypoxia. Patient seen at bedside today morning Patient denied any complaints other than mild S OB Overnight he was placed on CPAP at 50% FiO2 Other labs and imaging reviewed Review of Systems General: Reports: 10 or more systems reviewed and unremarkable except in HPI and below Meds/Allergies Home Medications and Allergies Home Medications Medication Instructions Recorded Confirmed Last Taken Type Fish Oil 1 cap PO DAILY 05/11/21 05/11/21 Unknown History Vitamin C 1 tab PO DAILY 05/11/21 05/11/21 Unknown History Vitamin D3 1 cap PO DAILY 05/11/21 05/11/21 Unknown History acetaminophen [Tylenol Ex Str 1,000 mg PO Q4H PRN 05/11/21 05/11/21 Unknown History Rapid Release] albuterol sulfate 2 puff INHALATION Q4H PRN 05/11/21 05/11/21 Unknown History azithromycin See Rx Instructions .ROUTE .COMPLEX 05/11/21 05/11/21 05/11/21 07:30 History prednisone 40 mg PO DAILY 05/11/21 05/11/21 05/11/21 07:30 History zinc 1 cap PO DAILY 05/11/21 05/11/21 Unknown History Allergies Allergy/AdvReac Type Severity Reaction Status Date / Time No Known Allergies Allergy Verified 05/11/21 11:34 Current Medications Current Medications Generic Name Dose Route Start Last Admin Trade Name Peter PRN Reason Stop Dose Admin Albuterol/Ipratropium 3 ml 05/12/21 09:00 05/15/21 03:08 Ipratropium-Albuterol 3 Ml Neb INHALATION 3 ml Q6H.RESPIRATORY TERE Administration Ascorbic Acid 1,000 mg 05/14/21 18:00 05/15/21 08:12 Ascorbic Acid 500 Mg Tablet PO 1,000 mg BID TERE Administration Dexamethasone 6 mg 05/12/21 09:00 05/15/21 08:11 Dexamethasone 10 Mg/Ml Inj IVP 6 mg Q24H TERE Administration Enoxaparin Sodium 40 mg 05/11/21 17:43 05/14/21 17:34 Enoxaparin 40 Mg/0.4 Ml Syringe SUBCUT 40 mg Q24H TERE Administration Vitamin D 1,000 unit 05/15/21 09:00 05/15/21 08:11 Cholecalciferol (Vitamin D3) 1,000 Unit Tablet PO 1,000 unit DAILY TERE Administration Zinc Gluconate 50 mg 05/15/21 09:00 05/15/21 08:11 Zinc Gluconate 50 Mg Tablet PO 50 mg DAILY TERE Administration PFSH Acute PFSH: Family History Other Dementia Social History Smoking and tobacco status: never smoked Alcohol intake: never Vitals/I&O/Wt Last Vital Signs Temp 98.4 F 05/15/21 08:00 Pulse 59 L 05/15/21 08:00 Resp 16 05/15/21 08:00 BP 101/67 05/15/21 08:00 Pulse Ox 94 05/15/21 08:00 05/14/21 05/15/21 05/15/21 22:59 06:59 14:59 Intake Total 250 / 490 220 / 710 Output Total 0 / 0 Balance 250 / 490 220 / 710 Physical Exam Narrative: EXAM NARRATIVE: General: alert, NAD HEENT: conj clear, EOMI, PERRL, mmm, Neck: supple, no meningismus Heme: no cervical LAP Pulmonary: CTAB, no wheezing, rhonchi, crackles Cardiovascular: rrr, nl s1s2, no mrg Abdomen: soft, nt, nd, no r/g, bs+ Extremities: pulses +, no edema, no c/c : no CVA tenderness Skin: intact, no rash MSK: no back or neck pain Neurologic: grossly intact Data Labs: Other Labs: Laboratory Results WBC 8.5 10^3/uL (4.0- 10.0) 05/15/21 05:29 RBC 5.25 10^6/uL (4.1 -5.3) 05/15/21 05:29 Hgb 14.5 g/dL (11.7-1 6.6) 05/15/21 05:29 Hct 45.1 % (42.0-52.0 ) 05/15/21 05:29 MCV 85.9 fl (80-94) 05/15/21 05:29 MCH 27.6 pg (28.0-34. 0) L 05/15/21 05:29 MCHC 32.2 g/dL (30.0-3 6.0) 05/15/21 05:29 RDW 13.4 % (12.1-15.1 ) 05/15/21 05:29 Plt Count 346 10^3/cmm (130 -400) 05/15/21 05:29 MPV 10.3 fL (7.4-10.4 ) 05/15/21 05:29 Neut % (Auto) 75.3 % 05/15/21 05:29 Lymph % (Auto) 17.0 % 05/15/21 05:29 [place] % (Auto) 6.3 % 05/15/21 05:29 Eos % (Auto) 0.0 % 05/15/21 05:29 Baso % (Auto) 0.1 % 05/15/21 05:29 Neut # (Auto) 6.40 10^3/uL (1.8 -7.7) 05/15/21 05:29 Lymph # (Auto) 1.5 10^3/uL (0.8- 4.8) 05/15/21 05:29 [place] # (Auto) 0.5 10^3/uL (0.2- 0.9) 05/15/21 05:29 Eos # (Auto) 0.0 10^3/uL (0.0- 0.8) 05/15/21 05:29 Baso # (Auto) 0.0 10^3/uL (0.0- 0.1) 05/15/21 05:29 Nucleated RBC % (a uto) 0 % 05/15/21 05:29 Nucleated RBCs # 0.0 /100WBC 05/15/21 05:29 D-Dimer 0.85 ug/mIFEU (0- 0.59) H 05/14/21 05:33 Specimen Type Arterial 05/14/21 12:37 Sample Site Radial, left 05/14/21 12:37 ABG pH 7.48 (7.35-7.45) H 05/14/21 12:37 ABG pCO2 34.2 mmHg (35-45) L 05/14/21 12:37 ABG pO2 46.0 mmHg (80.0-1 00.0) L 05/14/21 12:37 ABG HCO3 25.2 mmol/L (22-2 6) 05/14/21 12:37 ABG Base Excess 2.1 mmol/L (-2.0- 2.0) H 05/14/21 12:37 Roderick Test Pos 05/14/21 12:37 Hematocrit 45.5 % (42-52) 05/14/21 12:37 O2 Delivery Device Nc 05/14/21 12:37 O2 Liters/Min 5.0 % 05/14/21 12:37 FiO2 40.0 % 05/14/21 12:37 Treasury Specialist ID [place] 05/14/21 12:37 Sodium 140 mmol/L (136-1 45) 05/15/21 05:29 Potassium 4.8 mmol/L (3.5-5 .1) 05/15/21 05:29 Chloride 104 mmol/L (98-10 7) 05/15/21 05:29 Carbon Dioxide 24 mmol/L (22-29) 05/15/21 05:29 Anion Gap 16.8 (5-19) 05/15/21 05:29 BUN 22 mg/dL (6-20) H 05/15/21 05:29 Creatinine 0.6 mg/dL (0.7-1. 2) L 05/15/21 05:29 GFR Calculation 150.8 mL/min (90- 130) H 05/15/21 05:29 Glucose 90 mg/dL (65-115) 05/15/21 05:29 Calculated Osmolal ity 293 mOsm/kg (285- 295) 05/15/21 05:29 Lactic Acid 1.3 mmol/L (0.5-2 .2) 05/11/21 10:56 Calcium 8.2 mg/dL (8.5-10 .5) L 05/15/21 05:29 Total Bilirubin 0.4 mg/dL (0.15-1 .2) 05/14/21 02:43 AST 32 U/L (0-40) 05/14/21 02:43 ALT 35 U/L (0-41) 05/14/21 02:43 Alkaline Phosphata se 68 IU/L (40-130) 05/14/21 02:43 C-Reactive Protein 55.6 mg/L (0.0-4. 9) H 05/13/21 04:09 Total Protein 6.9 g/dL (6.6-8.7 ) 05/14/21 02:43 Albumin 3.2 g/dL (3.5-5.2 ) L 05/14/21 02:43 Globulin 3.7 g/dL (1.3-4.6 ) 05/14/21 02:43 Procalcitonin 0.02 ng/mL (0-0.5 ) 05/15/21 05:29 Impressions Chest X-Ray 05/11/21 11:11 IMPRESSION: 1. Patchy groundglass infiltrates throughout both lungs consistent with pneumonia. Covid pneumonia could have this appearance. Chest CTA 05/14/21 13:42 IMPRESSION: 1. Normal thoracic aorta. No dissection or aneurysm. 2. This examination is targeted to the thoracic aorta. No central pulmonary embolism. 3. Extensive bilateral pulmonary opacifications consistent with Covid 19. Micro: Micro: Microbiology 05/12/21 06:30 Gram Stain - Final Sputum - Expector ated Sputum Sputum Culture - F inal A&P Assessment and plan (1) Acute respiratory failure with hypoxia: Status: Acute (2) Pneumonia due to COVID-19 virus: Status: Acute #Acute hypoxic respiratory failure due to ARDS due to COVID-19 pneumonia -COVID-19 PCR symptoms started 05/06/2021-PCR + 05/09/2020 -S/p tocilizumab 07/12/2020, completed 5-day course of remdesivir, -Currently on dexamethasone 6 MG IVP daily -Yesterday ABG on 5 L nasal cannula 7.4 / -Currently saturating 94% on CPAP 9 FiO2 50% -today we will taper off CPAP and place him on NC/HFNC and titrate FiO2 to keep saturations greater than 90% -Close monitoring with pulse oximeter and have low threshold for intubation if there is rapid decline -Encouraged to do self proning, incentive spirometry, physical therapy -Afebrile, WBC 8.5K, low procalcitonin, -Seen for urine Legionella, bacterial antigens; sputum cultures negative so far -DuoNeb nebulizations every 6 hours -CRP downtrending -Urine output and renal parameters are good; monitor input and output to keep even to slight net negative -Sugars well controlled -Famotidine for GI prophylaxis as patient is receiving steroids -On Lovenox for DVT prophylaxis Medical condition and management plan discussed with patient and he verbalized understanding and agreed with the plan. Recommendations conveyed to hospitalist covering the patient Consult Attestations Medical Necessity Statement: Acute hypoxic respiratory failure secondary to ARDS due to COVID-19 requiring high flow Time Spent in Patient Care: Greater than 35 minutes (>than 50% of time spent in counselling and/or direct pt care on unit). Critical Care Time: Critical Care Time (min): 45 Coding Level of Care Code Acute Bin Worker for Jennie Vasquez Diagnoses Acute respiratory failure with hypoxia J96.01 Pneumonia due to COVID-19 virus U07.1; J12.82
--- NOTE | 2021-05-15 11:07 | PC.NURSE ---
The nurse knows that the pt's O2 is at 84%
--- NOTE | 2021-05-15 11:23 | PC.NURSE ---
During rounding, patient's SPO2 was 84% on 6L/min via NC and continued to fluctuate between 81 and 84%. Probe was assessed as well as patient status and his respiratory effort is as expected for COVID-19. Lety RT contacted to assess patient further at this time and patient's status continuously assessed until RT arrived.
--- NOTE | 2021-05-15 16:45 | P.PN_ITS ---
Subjective Subjective: Interval history: Seen this afternoon. Was unable to be seen in the morning. Patient is currently on 7 L nasal cannula. Patient was also seen by pulmonology this morning. Recommendations have been made for self proning. He states he will try to sleep on his belly today. Vitals/I&O/Wt Last Vital Signs Temp 98.4 F 05/15/21 15:34 Pulse 75 05/15/21 15:34 Resp 18 05/15/21 15:34 BP 112/70 05/15/21 15:34 Pulse Ox 94 05/15/21 16:20 05/15/21 05/15/21 05/15/21 06:59 14:59 22:59 Intake Total 220 / 710 960 / 960 Balance 220 / 710 960 / 960 Physical Exam Narrative: EXAM NARRATIVE: General: Alert oriented x3, seen at bedside, saturating 94% on 7 L nasal cannula.. HEENT: Normocephalic, atraumatic, EOMI, Cardio: Regular rate rhythm, normal S1-S2, Respiratory: Mainly clear to auscultation bilaterally, no wheezes no rhonchi, No conversational dyspnea noted. Saturating 94% on 7 L nasal cannula. GI: Abdomen soft, nontender, bowel sounds + Extremities: no edema, no cyanosis Data : 05/16/21 05:55 05/16/21 05:55 A&P Assessment and plan (1) Acute respiratory failure with hypoxia: Status: Acute (2) Acute and chronic respiratory failure with hypoxia: See above Status: Acute (3) Pneumonia due to COVID-19 virus: Status: Acute (4) Multiple fractures of ribs of left side: Status: Acute Qualifiers: Encounter type: initial encounter Fracture type: closed Qualified Code(s): S22.42XA - Multiple fractures of ribs, left side, initial encounter for closed fracture Additional A&P Information Persistent hypoxia related to COVID-19 Patient does get short of breath on ambulation Home oxygen evaluation was done this morning. Upon ambulation patient desatur ated to 81% on 10 L nasal cannula. Baricitinib has been stopped as patient is status post Actemra 05/12. He is also completed 5 days of remdesivir at this point. CTA ruled out PE. Continue dexamethasone Close monitoring with pulse oximeter. Low threshold for intubation if there is rapid decline. Patient encouraged to do self proning incentive spirometry physical therapy. Procalcitonin is low patient has been afebrile. Urine Legionella, bacterial antigen sputum cultures negative so far. Famotidine for GI prophylaxis. Continue DVT prophylaxis Lovenox 40 daily dose for now. Pulmonology on board. Recommendations appreciated. Full code Attestations Medical Necessity Statement*: Greater than 48-hour stay. Coding Level of Care Code Acute Shuttle Car Operator for [facility] Diagnoses Acute respiratory failure with hypoxia J96.01 Acute and chronic respiratory failure with hypoxia J96.21 Pneumonia due to COVID-19 virus U07.1; J12.82 Multiple fractures of ribs of left side S22.42XA Encounter type: initial encounter Fracture type: closed
[2021-05-15] MEDS: enoxaparin 40 mg/0.4 mL Syringe SUBCUT (16:54)
--- NOTE | 2021-05-15 18:52 | PC.NURSE ---
Report to slot shift manager at this time.
[2021-05-15] MEDS: famotidine 20 mg Tablet 40 MG PO (20:42)
[2021-05-16] VITALS (15 sets, daily range): BP systolic 88–124; BP diastolic 54–77; PULSE 58–94; RESP 16–26; TEMP 36.4–37.1; O2SAT 80–97
[2021-05-16] MEDS: ipratropium-albuterol 3 mL Neb INHALATION ×4 (02:58→20:50)
[2021-05-16 05:42] LABS: ABG PCO2 40.3 mmHg (35-45); ABG PH Result 7.44 (7.35-7.45); Base Excess ABG 2.6 mmol/L (-2.0-2.0); HCO3 ABG 27.1 mmol/L (22-26)
[2021-05-16 05:43] LABS: Blood Gas Allen Test pos; Oxygen Device cpap; Oxygen Saturation ABG 98.5; Potassium Level - ABG 4.3 mmol/L (3.5-5.0)
[2021-05-16 05:44] LABS: Arterial Blood Gas Hematocrit 47.2 % (42-52); Blood Gas Sample Type Arterial; Ionized Calcium Level - ABG 1.1 mmol/L (1.1-1.4)
[2021-05-16 05:45] LABS: Carboxyhemoglobin 0.4 %THgb (0.4-20.1); HGB O2 Sat 97.4 % (95-100); Methemoglobin 0.8 % (0.4-1.5); Total Hemoglobin 15.4 g/dL (14-18)
[2021-05-16 06:25] LABS: Basophils % 0.1 %; Eosinophils # 0.1 10^3/uL (0.0-0.8); Eosinophils % 0.9 %; Hematocrit 45.8 % (42.0-52.0); Hemoglobin 14.6 g/dL (11.7-16.6); Lymphocytes # 1.4 10^3/uL (0.8-4.8); Lymphocytes % 15.1 %; Mean Corpuscular HGB Conc 31.9 g/dL (30.0-36.0); Mean Corpuscular Hemoglobin 27.7 pg (28.0-34.0); Mean Corpuscular Volume 86.9 fl (80-94); Mean Platelet Volume 10.1 fL (7.4-10.4); Monocytes # 0.5 10^3/uL (0.2-0.9); Monocytes % 5.9 %; Neutrophils # 6.83 10^3/uL (1.8-7.7); Neutrophils % 76.5 %; Nucleated Red Blood Cells % 0 %; Platelet Count 310 10^3/cmm (130-400); Red Blood Count 5.27 10^6/uL (4.1-5.3); Red Cell Distribution Width 13.4 % (12.1-15.1); White Blood Count 8.9 10^3/uL (4.0-10.0)
[2021-05-16 06:49] LABS: Anion Gap 13.3 (5-19); Blood Urea Nitrogen 20 mg/dL (6-20); Carbon Dioxide 26 mmol/L (22-29); Chloride 103 mmol/L (98-107); Glomerular Filtration Rate 150.8 mL/min (90-130); Glucose 81 mg/dL (65-115); Magnesium 2.2 mg/dL (1.7-2.3); Osmolality Calculated 288 mOsm/kg (285-295); Potassium 4.3 mmol/L (3.5-5.1); Sodium 138 mmol/L (136-145)
[2021-05-16] MEDS: ascorbic acid 500 mg Tablet 1000 MG PO ×2 (08:31→17:31)
[2021-05-16] MEDS: dexamethasone 10 mg/mL INJ 6 MG IVP (08:31)
[2021-05-16] MEDS: cholecalciferol (vitamin D3) 1,000 unit Tablet 1000 UNIT PO (08:31)
[2021-05-16] MEDS: zinc gluconate 50 mg Tablet PO (08:31)
--- NOTE | 2021-05-16 14:44 | PM.PN ---
Subjective Subjective: Interval history: Seen this morning. He states he is doing the same as yesterday but does feel little bit better. He is currently on 6 L nasal cannula resting on his recliner. Possibility of LTAC was brought up with patient and he states that he would never like to go there and would like to go home. Vitals/I&O/Wt Last Vital Signs Temp 98.2 F 05/16/21 12:00 Pulse 76 05/16/21 12:00 Resp 18 05/16/21 12:00 BP 124/77 05/16/21 12:00 Pulse Ox 94 05/16/21 12:00 05/15/21 05/16/21 05/16/21 22:59 06:59 14:59 Intake Total 460 / 1420 320 / 320 Output Total 850 / 850 Balance 460 / 1420 -530 / -530 Physical Exam Narrative: EXAM NARRATIVE: General: Alert oriented x3, seen at bedside, saturating 94% on 6 L nasal cannula.. Cardio: Regular rate rhythm, normal S1-S2, Respiratory: Mainly clear to auscultation bilaterally, no wheezes no rhonchi, No conversational dyspnea noted. Saturating 94% on 6 L nasal cannula. GI: Abdomen soft, nontender, Extremities: no edema, no cyanosis Data : 05/16/21 05:55 05/16/21 05:55 A&P Assessment and plan (1) Acute respiratory failure with hypoxia: Status: Acute (2) Acute and chronic respiratory failure with hypoxia: See above Status: Acute (3) Pneumonia due to COVID-19 virus: Status: Acute (4) Multiple fractures of ribs of left side: Status: Acute Qualifiers: Encounter type: initial encounter Fracture type: closed Qualified Code(s): S22.42XA - Multiple fractures of ribs, left side, initial encounter for closed fracture Additional A&P Information Persistent hypoxia related to COVID-19 Patient does get short of breath on ambulation Home oxygen evaluation was done this morning. Upon ambulation patient desaturated to 81% on 10 L nasal cannula. Baricitinib has been stopped as patient is status post Actemra 05/12. He is also completed 5 days of remdesivir at this point. CTA ruled out PE. Continue dexamethasone Close monitoring with pulse oximeter. Low threshold for intubation if there is rapid decline. Patient encouraged to do self proning incentive spirometry physical therapy. Procalcitonin is low patient has been afebrile. Urine Legionella, bacterial antigen sputum cultures negative so far. Famotidine for GI prophylaxis. Continue DVT prophylaxis Lovenox 40 daily dose for now. Pulmonology on board. Recommendations appreciated. Patient still requiring 6 L of cannula at rest. He has been encouraged to get up and move around. Patient also self proned last night. I have encouraged him to do that again tonight. Will discuss with pulmonology and see if we can do another home oxygen evaluation to see if patient drops again on ambulation. Full code Attestations Medical Necessity Statement*: Greater than 24-hour stay. Coding Level of Care Code Acute Aoc Plans Intelligence Officer for kandy Vasquez Diagnoses Acute respiratory failure with hypoxia J96.01 Acute and chronic respiratory failure with hypoxia J96.21 Pneumonia due to COVID-19 virus U07.1; J12.82 Multiple fractures of ribs of left side S22.42XA Encounter type: initial encounter Fracture type: closed
--- NOTE | 2021-05-16 17:01 | PM.PN ---
Subjective Subjective: Interval history: Patient seen today morning at bedside Sitting out of bed to chair He was on 7 L oxygen oxy pendant - later changed to 8L HFNC saturating 92% no new complaints other labs and imaging reviewed Medications: Reviewed: Yes Vitals/I&O/Wt Last Vital Signs Temp 98.3 F 05/16/21 15:38 Pulse 86 05/16/21 15:38 Resp 18 05/16/21 15:38 BP 101/66 05/16/21 15:38 Pulse Ox 95 05/16/21 15:38 05/16/21 05/16/21 05/16/21 06:59 14:59 22:59 Intake Total 320 / 320 Output Total 850 / 850 Balance -530 / -530 Physical Exam Narrative: EXAM NARRATIVE: General: alert, NAD HEENT: conj clear, EOMI, PERRL, mmm, Neck: supple, no meningismus Heme: no cervical LAP Pulmonary: CTAB, no wheezing, rhonchi, crackles Cardiovascular: rrr, nl s1s2, no mrg Abdomen: soft, nt, nd, no r/g, bs+ Extremities: pulses +, no edema, no c/c : no CVA tenderness Skin: intact, no rash MSK: no back or neck pain Neurologic: grossly intact Data : 05/16/21 05:55 05/16/21 05:55 Other Labs: Laboratory Results WBC 8.9 10^3/uL (4.0-10.0) 05/16/21 05:55 RBC 5.27 10^6/uL (4.1-5.3) 05/16/21 05:55 Hgb 14.6 g/dL (11.7-16.6) 05/16/21 05:55 Hct 45.8 % (42.0-52.0) 05/16/21 05:55 MCV 86.9 fl (80-94) 05/16/21 05:55 MCH 27.7 pg (28.0-34.0) L 05/16/21 05:55 MCHC 31.9 g/dL (30.0-36.0) 05/16/21 05:55 RDW 13.4 % (12.1-15.1) 05/16/21 05:55 Plt Count 310 10^3/cmm (130-400) 05/16/21 05:55 MPV 10.1 fL (7.4-10.4) 05/16/21 05:55 Neut % (Auto) 76.5 % 05/16/21 05:55 Lymph % (Auto) 15.1 % 05/16/21 05:55 [place] % (Auto) 5.9 % 05/16/21 05:55 Eos % (Auto) 0.9 % 05/16/21 05:55 Baso % (Auto) 0.1 % 05/16/21 05:55 Neut # (Auto) 6.83 10^3/uL (1.8-7.7) 05/16/21 05:55 Lymph # (Auto) 1.4 10^3/uL (0.8-4.8) 05/16/21 05:55 [place] # (Auto) 0.5 10^3/uL (0.2-0.9) 05/16/21 05:55 Eos # (Auto) 0.1 10^3/uL (0.0-0.8) 05/16/21 05:55 Baso # (Auto) 0.0 10^3/uL (0.0-0.1) 05/16/21 05:55 Nucleated RBC % (auto) 0 % 05/16/21 05:55 Nucleated RBCs # 0.0 /100WBC 05/16/21 05:55 D-Dimer 0.85 ug/mIFEU (0-0.59) H 05/14/21 05:33 Specimen Type Arterial 05/16/21 05:22 Sample Site Radial,right 05/16/21 05:22 ABG pH 7.44 (7.35-7.45) 05/16/21 05:22 ABG pCO2 40.3 mmHg (35-45) 05/16/21 05:22 ABG pO2 112.0 mmHg (80.0-100.0) H 05/16/21 05:22 ABG HCO3 27.1 mmol/L (22-26) H 05/16/21 05:22 ABG O2 Saturation 98.5 05/16/21 05:22 ABG Base Excess 2.6 mmol/L (-2.0-2.0) H 05/16/21 05:22 Roderick Test pos 05/16/21 05:22 A-a O2 Gradient Not Reportable 05/16/21 05:22 Hematocrit 47.2 % (42-52) 05/16/21 05:22 Hgb O2 Saturation 97.4 % (95-100) 05/16/21 05:22 Carboxyhemoglobin 0.4 %THgb (0.4-20.1) 05/16/21 05:22 Methemoglobin 0.8 % (0.4-1.5) 05/16/21 05:22 Total Hemoglobin 15.4 g/dL (14-18) 05/16/21 05:22 Sodium 141.0 mmol/L (131-143) 05/16/21 05:22 Potassium 4.3 mmol/L (3.5-5.0) 05/16/21 05:22 Glucose 88.0 mg/dL (70-115) 05/16/21 05:22 Ionized Calcium 1.1 mmol/L (1.1-1.4) 05/16/21 05:22 O2 Delivery Device cpap 05/16/21 05:22 O2 Liters/Min 5.0 % 05/14/21 12:37 FiO2 50.0 % 05/16/21 05:22 CPAP 12.0 cmH20 05/16/21 05:22 Specimen Drawn By mahesh 05/16/21 05:22 Logistics Research Engineer ID mahesh 05/16/21 05:22 Sodium 138 mmol/L (136-145) 05/16/21 05:55 Potassium 4.3 mmol/L (3.5-5.1) 05/16/21 05:55 Chloride 103 mmol/L (98-107) 05/16/21 05:55 Carbon Dioxide 26 mmol/L (22-29) 05/16/21 05:55 Anion Gap 13.3 (5-19) 05/16/21 05:55 BUN 20 mg/dL (6-20) 05/16/21 05:55 Creatinine 0.6 mg/dL (0.7-1.2) L 05/16/21 05:55 GFR Calculation 150.8 mL/min (90-130) H 05/16/21 05:55 Glucose 81 mg/dL (65-115) 05/16/21 05:55 Calculated Osmolality 288 mOsm/kg (285-295) 05/16/21 05:55 Lactic Acid 1.3 mmol/L (0.5-2.2) 05/11/21 10:56 Calcium 8.0 mg/dL (8.5-10.5) L 05/16/21 05:55 Magnesium 2.2 mg/dL (1.7-2.3) 05/16/21 05:55 Total Bilirubin 0.4 mg/dL (0.15-1.2) 05/14/21 02:43 AST 32 U/L (0-40) 05/14/21 02:43 ALT 35 U/L (0-41) 05/14/21 02:43 Alkaline Phosphatase 68 IU/L (40-130) 05/14/21 02:43 C-Reactive Protein 55.6 mg/L (0.0-4.9) H 05/13/21 04:09 Total Protein 6.9 g/dL (6.6-8.7) 05/14/21 02:43 Albumin 3.2 g/dL (3.5-5.2) L 05/14/21 02:43 Globulin 3.7 g/dL (1.3-4.6) 05/14/21 02:43 Procalcitonin 0.02 ng/mL (0-0.5) 05/15/21 05:29 Impressions Chest X-Ray 05/11/21 11:11 IMPRESSION: 1. Patchy groundglass infiltrates throughout both lungs consistent with pneumonia. Covid pneumonia could have this appearance. Chest CTA 05/14/21 13:42 IMPRESSION: 1. Normal thoracic aorta. No dissection or aneurysm. 2. This examination is targeted to the thoracic aorta. No central pulmonary embolism. 3. Extensive bilateral pulmonary opacifications consistent with Covid 19. A&P Assessment and plan (1) Acute respiratory failure with hypoxia: Status: Acute (2) Pneumonia due to COVID-19 virus: Status: Acute #Acute hypoxic respiratory failure due to ARDS due to COVID-19 pneumonia -COVID-19 PCR symptoms started 05/06/2021-PCR + 05/09/2020 -S/p tocilizumab 07/12/2020, completed 5-day course of remdesivir, -Currently on dexamethasone 6 MG IVP daily - to complete 10 days -ABG 7.44/40/12/27/98% on CPAP 9 FiO2 50% at night -In the morning he was on 7 L oxygen oxy pendant - later changed to 8L HFNC saturating 92% -Close monitoring with pulse oximeter and have low threshold for intubation if there is rapid decline -Encouraged to do self proning, incentive spirometry, physical therapy -Afebrile, WBC 8.9K, low procalcitonin, -ordered urine Legionella, bacterial antigens few days ago - not sent for some raeason several no known; sputum cultures negative so far -DuoNeb nebulizations every 6 hours -CRP downtrending -Urine output and renal parameters are good; monitor input and output to keep even to slight net negative -Sugars well controlled -Famotidine for GI prophylaxis as patient is receiving steroids -On Lovenox for DVT prophylaxis Medical condition and management plan discussed with patient and he verbalized understanding and agreed with the plan. Recommendations conveyed to hospitalist covering the patient Attestations Medical Necessity Statement*: Acute hypoxic respiratory failure secondary to COVID-19 requiring 8 L-if patient continues to improve over the next couple of days-may go home with 5 L nasal cannula Time Spent in Patient Care: Greater than 35 minutes (>than 50% of time spent in counselling and/or direct pt care on unit). Critical Care Time: Critical Care Time (min): 20 Coding Level of Care Code Established Pt Acute Cuff Setter Overlock for Chg Fwd Patient Type Established History Comprehensive Exam Comprehensive Medical Decision Making High Complexity Diagnoses Acute respiratory failure with hypoxia J96.01 Pneumonia due to COVID-19 virus U07.1; J12.82 Time Spent (min) 20
[2021-05-16] MEDS: enoxaparin 40 mg/0.4 mL Syringe SUBCUT (17:31)
--- NOTE | 2021-05-16 18:46 | PC.NURSE ---
Report to shift boss nurse at this time.
[2021-05-16] MEDS: famotidine 20 mg Tablet 40 MG PO (20:48)
[2021-05-17] VITALS (15 sets, daily range): BP systolic 94–124; BP diastolic 61–81; PULSE 76–98; RESP 17–36; TEMP 36.6–37.2; O2SAT 89–95
[2021-05-17] MEDS: ipratropium-albuterol 3 mL Neb INHALATION ×4 (03:03→20:37)
[2021-05-17 06:06] LABS: Basophils % 0.1 %; Eosinophils # 0.3 10^3/uL (0.0-0.8); Eosinophils % 2.8 %; Hemoglobin 14.9 g/dL (11.7-16.6); Lymphocytes # 1.2 10^3/uL (0.8-4.8); Lymphocytes % 13.2 %; Mean Corpuscular HGB Conc 31.7 g/dL (30.0-36.0); Mean Corpuscular Hemoglobin 27.2 pg (28.0-34.0); Mean Corpuscular Volume 85.8 fl (80-94); Mean Platelet Volume 9.9 fL (7.4-10.4); Monocytes # 0.5 10^3/uL (0.2-0.9); Monocytes % 5.5 %; Neutrophils # 6.88 10^3/uL (1.8-7.7); Neutrophils % 76.5 %; Nucleated Red Blood Cells % 0 %; Platelet Count 314 10^3/cmm (130-400); Red Blood Count 5.48 10^6/uL (4.1-5.3); Red Cell Distribution Width 13.3 % (12.1-15.1)
[2021-05-17 06:34] LABS: Anion Gap 17.1 (5-19); Blood Urea Nitrogen 17 mg/dL (6-20); Carbon Dioxide 21 mmol/L (22-29); Chloride 103 mmol/L (98-107); Glomerular Filtration Rate 150.8 mL/min (90-130); Glucose 87 mg/dL (65-115); Magnesium 2.3 mg/dL (1.7-2.3); Osmolality Calculated 285 mOsm/kg (285-295); Potassium 4.1 mmol/L (3.5-5.1); Sodium 137 mmol/L (136-145)
[2021-05-17] MEDS: zinc gluconate 50 mg Tablet PO (09:13)
[2021-05-17] MEDS: ascorbic acid 500 mg Tablet 1000 MG PO ×2 (09:13→17:09)
[2021-05-17] MEDS: cholecalciferol (vitamin D3) 1,000 unit Tablet 1000 UNIT PO (09:13)
[2021-05-17] MEDS: dexamethasone 10 mg/mL INJ 6 MG IVP (09:13)
--- NOTE | 2021-05-17 10:47 | P.PN_ITS ---
Subjective Subjective: Interval history: Seen this AM. Pt reports he walked around his room with oxygen and destarated to mid to low 80's. He has also been using incentive spirometer and flutter valve. He feels better and asking when he can go home. Vitals/I&O/Wt Last Vital Signs Temp 98.9 F 05/17/21 08:00 Pulse 98 05/17/21 09:46 Resp 17 05/17/21 09:37 BP 102/61 05/17/21 08:00 Pulse Ox 89 L 05/17/21 09:37 05/16/21 05/17/21 05/17/21 22:59 06:59 14:59 Intake Total 1090 / 1410 Output Total 825 / 1675 Balance 265 / -265 Physical Exam Narrative: EXAM NARRATIVE: General: Alert oriented x3, seen at bedside, saturating 92% on 5 L nasal cannula.. Cardio: Regular rate rhythm, normal S1-S2, Respiratory: Mainly clear to auscultation bilaterally, no wheezes no rhonchi, No conversational dyspnea noted. Saturating 94% on 5 L nasal cannula. Very mild coarse breath sounds at bases bilaterally. GI: Abdomen soft, nontender, Extremities: no edema, no cyanosis Data : 05/17/21 05:49 05/17/21 05:49 A&P Assessment and plan (1) Acute respiratory failure with hypoxia: Status: Acute (2) Acute and chronic respiratory failure with hypoxia: See above Status: Acute (3) Pneumonia due to COVID-19 virus: Status: Acute (4) Multiple fractures of ribs of left side: Status: Acute Qualifiers: Encounter type: initial encounter Fracture type: closed Qualified Code(s): S22.42XA - Multiple fractures of ribs, left side, initial encounter for closed fracture Additional A&P Information Persistent hypoxia related to COVID-19 Patient does get short of breath on ambulation Home oxygen evaluation was done this morning. Upon ambulation patient desaturated to 81% on 10 L nasal cannula. Baricitinib has been stopped as patient is status post Actemra 05/12. He is also completed 5 days of remdesivir at this point. CTA ruled out PE. Continue dexamethasone Close monitoring with pulse oximeter. Low threshold for intubation if there is rapid decline. Patient encouraged to do self proning incentive spirometry physical therapy. Procalcitonin is low patient has been afebrile. Urine Legionella, bacterial antigen sputum cultures negative so far. Famotidine for GI prophylaxis. Continue DVT prophylaxis Lovenox 40 daily dose for now. Pulmonology on board. Recommendations appreciated. Patient still requiring 6 L of cannula at rest. He has been encouraged to get up and move around. Patient also self proned last night. I have encouraged him to do that again tonight. Patient to continue using flutter valve and incentive spirometer. If he continues to improve, will do formal home oxygen eval in AM and plan to discharge patient if pulmnonology agrees. Will do another home oxygen eval in AM. Full code Attestations Medical Necessity Statement*: Possible dc in AM Coding Level of Care Code Acute Political Director for Jennie Vasquze Diagnoses Acute respiratory failure with hypoxia J96.01 Acute and chronic respiratory failure with hypoxia J96.21 Pneumonia due to COVID-19 virus U07.1; J12.82 Multiple fractures of ribs of left side S22.42XA Encounter type: initial encounter Fracture type: closed
[2021-05-17] MEDS: enoxaparin 40 mg/0.4 mL Syringe SUBCUT (17:09)
[2021-05-17] MEDS: famotidine 20 mg Tablet 40 MG PO (20:10)
[2021-05-18] VITALS (10 sets, daily range): BP systolic 102–124; BP diastolic 67–70; PULSE 68–83; RESP 16–19; TEMP 36.4–37.1; O2SAT 86–95
[2021-05-18] MEDS: ipratropium-albuterol 3 mL Neb INHALATION ×2 (03:40→09:25)
[2021-05-18] MEDS: zinc gluconate 50 mg Tablet PO (09:21)
[2021-05-18] MEDS: cholecalciferol (vitamin D3) 1,000 unit Tablet 1000 UNIT PO (09:21)
[2021-05-18] MEDS: ascorbic acid 500 mg Tablet 1000 MG PO (09:21)
--- NOTE | 2021-05-18 13:08 | P.DS_ITS ---
Discharge Providers Date of Admission: 05/11/21 17:43 Date of Discharge: May 18, 2021 Attending Provider at Admission: Baron Gould MD Attending Provider at Discharge: Bonnie Smith MD Primary Care Provider: CHANTAL Zuniga Diagnoses at Discharge Discharge Diagnosis (1) Acute respiratory failure with hypoxia: Status: Acute (2) Acute and chronic respiratory failure with hypoxia: Status: Acute (3) Pneumonia due to COVID-19 virus: Status: Acute Reason for Visit 2 Reason for Visit: COVID+ Hospital Course Hospital Course As per Dr. Luis Fernando Krishnan Genesis is a 40 year old male presenting to the emergency department with increasing shortness of breath. He has had symptoms of cough, shortness of breath, intermittent fever since May 06. He tested positive for Covid on the . He felt a little bit better yesterday but worse today. Upon arrival to the emergency department his oxygen saturation was 88% respiratory rate 20 and from my understanding he had some mild respiratory distress prior to oxygen being administered. He denies any nausea, vomiting or diarrhea. He has been eating less but still drinking plenty of fluids. Course: Patient admitted for COVID-19 pneumonia. He completed dexamethasone remdesivir. He also received Actemra during hospital stay. He was requiring up to 10 L nasal cannula and desaturating to 81% on ambulation. Eventually patient improved and was able to go home on 4 to 5 L nasal cannula on ambulation. Home O2 eval was completed. He was set up with home oxygen and discharged in a stable condition. He was encouraged to keep using the flutter valve and incentive spirometry. Procalcitonin was low and patient stayed afebrile during stay. Sputum culture is also negative. Physical Exam Narrative: EXAM NARRATIVE: Alert oriented x3, seen at bedside, saturating 92% on 5 L nasal cannula.. Cardio: Regular rate rhythm, normal S1-S2, Respiratory: Mainly clear to auscultation bilaterally, no wheezes no rhonchi, No conversational dyspnea noted. Saturating 94% on 5 L nasal cannula. Very mild coarse breath sounds at bases bilaterally. Improved lung exam. GI: Abdomen soft, nontender, Extremities: no edema, no cyanosis Discharge Data Data Completed and Pending: Completed Studies During Hospitalization Category Date Time Status CT angio chest 71 275 Urgent Cat Scan 05/14/21 13:42 Completed XR chest 1V misti ble [id number] Stat Exams 05/11/21 11:11 Completed Vitals: Last Vital Signs Temp 98.2 F 05/18/21 12:00 Pulse 82 05/18/21 12:00 Resp 18 05/18/21 12:00 BP 103/67 05/18/21 12:00 Pulse Ox 91 05/18/21 12:00 Discharge Plan Discharge Patient Disposition: Home Condition: Stable Prescriptions: New famotidine 20 mg Tablet 40 mg PO BEDTIME 14 Days Qty: 28 RF: 0 Continued acetaminophen 500 mg Tablet 1,000 mg PO Q4H PRN (Reason: Pain) RF: 0 albuterol sulfate 90 mcg/actuation HFA aerosol inhaler 2 puff INHALATION Q4H PRN (Reason: Shortness Of Breath) RF: 0 Fish Oil 1 cap PO DAILY RF: 0 Vitamin C 1 tab PO DAILY RF: 0 Vitamin D3 1 cap PO DAILY RF: 0 zinc 1 cap PO DAILY RF: 0 Discontinued azithromycin 250 mg tablet See Rx Instructions .ROUTE .COMPLEX RF: 0 prednisone 20 mg tablet 40 mg PO DAILY RF: 0 Discharge Orders: Discharge Order (Routine); Ordered 05/18/21 Ordered By: Bonnie Smith Other Ambulatory Orders: DME: Oxygen (Order) Location: None Selected Ordered By: Bonnie Smith Referrals: Alessandra Spence FNP [Primary Care Provider] - 05/23/21 9:30 am Discharge Diet: Regular Discharge Activity: Increase activity as tolerated and Oxygen as instructed Patient Instructions: Famotidine (By mouth) (Acid Controller, Acid Purchasing Analyst, P epcid AC, Pepcid), COVID-19 (Coronavirus Disease 2019) (DC), Opioid Safety Activity Restrictions/Additional Instructions: Continue to use incentive spirometer and flutter valve device. Discharge Attestations Time Spent in Discharge Care*: less than 30 min Quality Metrics Clinical Quality Measures During this hospital stay, did patient experience: None Coding Level of Care Code Acute Chg FW DC note Diagnoses Acute respiratory failure with hypoxia J96.01 Acute and chronic respiratory failure with hypoxia J96.21 Pneumonia due to COVID-19 virus U07.1; J12.82
== END 2021-05-18 15:45 | disposition home or self-care (01) | DRG 177 ==
LOC: ER 10:49 → MEDSURG 05-12 06:42
PROVIDERS: Internal Medicine; Admitting Provider Internal Medicine; Emergency Provider Family Medicine; PCP Nurse Practitioner Family; Visit Provider Internal Medicine
DX: U07.1 COVID-19 (principal); J12.82 Pneumonia due to coronavirus disease 2019; J96.21 Acute and chronic respiratory failure with hypoxia; E66.9 Obesity, unspecified; Z68.31 Body mass index [BMI] 31.0-31.9, adult; G47.33 Obstructive sleep apnea (adult) (pediatric); Z99.89 Dependence on other enabling machines and devices; Z79.51 Long term (current) use of inhaled steroids
CPT/HCPCS: 36415; 36600; 71045; 71275; 80048; 80051; 80053; 82330; 82803; 82805; 83605; 83735; 84145; 85025; 85378; 86140; 87070; 87205; 94640; 94660; 96365; 96372; 96375; 99285; J0696; J1100; J1650; J3262; J3535; Q9967

== ENCOUNTER 2021-05-30 13:02 | Outpatient (CLI) | payer BC, SELFPAY ==
--- NOTE | 2021-05-30 13:00 | XR_ITS ---
WS: [id number] Exam: XR chest 2V* [id number] Date/Time of Exam: 05/30/2021 1:04 PM Reason For Exam: J96.01 - Acute respiratory failure with hypoxia Comparison 05/11/2021. Extensive bilateral pulmonary infiltrates are noted. Areas of consolidation in the mid and lower bila teral lung zones. Heart size is within normal limits. No pneumothorax or pleural effusion. The medias tinum is unremarkable in appearance. Bony structures are intact. XR/XR chest 2V* [id number] IMPRESSION: 1. Extensive bilateral pulmonary infiltrates suggesting acute pneumonia. There may be some superimposed chronic pulmonary change also. These results were phoned to Dr. Sa Weatherss has office and given to the nurse at 1:20 PM 05/30/2021. The patient was instructed to go back to Dr. Sa Weathers s office for care.
== END 2021-05-30 13:03 | disposition home or self-care (01) ==
PROVIDERS: PCP Nurse Practitioner Family; Visit Provider Internal Medicine Critical Care Medicine
DX: J96.01 Acute respiratory failure with hypoxia (principal); R91.8 Other nonspecific abnormal finding of lung field
CPT/HCPCS: 71046